=== PATIENT | male | born 1960 | race Caucasian/White ===

== ENCOUNTER 2017-08-21 10:24 | Day surgery (SDC) | payer OTHER ==
[2017-08-20 14:19] VITALS: BMI 28.8
[2017-08-21] MEDS ORDERED: LIDOCAINE VISCOUS 2% ORAL/TOP 20 ML UNIT-DOSE CUP ONE (11:41)
[2017-08-21] MEDS ORDERED: PROPOFOL 20 ML ONE ×2 (11:56)
[2017-08-21] MEDS ORDERED: MIDAZOLAM HCL 2 MG/2 ML SINGLE DOSE VIAL ONE (11:56)
[2017-08-21] MEDS ORDERED: LIDOCAINE VISCOUS 2% ORAL/TOP 20 ML UNIT-DOSE CUP MM ONE (12:04)
--- NOTE | 2017-08-21 12:28 | PROC ---
Cardioversion Risks and Benefits Explained: Yes Consent on Chart: Yes JAME done prior to Cardioversion: Yes JAME findings: no thrombus Patient anticoagulated: Yes - Procedure Anesthesiologist present: Yes Medication given: propofol Joules delivered: 120 x1 Rhythm post cardioversion: sr Remarks: Pt tolerated procedure well, no complications.
[2017-08-21 12:52] VITALS: TEMP 97.8
--- NOTE | 2017-08-21 13:05 | EKG ---
Test Reason : Blood Pressure : / mmHG Vent. Rate : 090 BPM Atrial Rate : 090 BPM P-R Int : 176 ms QRS Dur : 082 ms QT Int : 366 ms P-R-T Axes : 064 -18 027 degrees QTc Int : 447 ms NORMAL SINUS RHYTHM NORMAL ECG NO PREVIOUS ECGS AVAILABLE Confirmed by SARA QURESHI, LORIE ([id number]) on 08/21/2017 1:04:44 PM Referred By: Bong Casanova Confirmed By:LORIE RUIZ MD
[2017-08-21 13:43] VITALS: BP 120/71; PULSE 83
== END 2017-08-21 13:43 | disposition home or self-care (01) ==
LOC: JASU-ENDO 10:24
PROVIDERS: ATTEND Internal Medicine Cardiovascular Disease
PROC: 5A2204Z Restoration of Cardiac Rhythm, Single (ICD-10-PCS; 2017-08-21)
PROC: B246ZZ4 Ultrasonography of Right and Left Heart, Transesophageal (ICD-10-PCS; principal; 2017-08-21 11:00)
DX: I48.91 Unspecified atrial fibrillation (principal)
CPT/HCPCS: 92960; 93005; 93010; 93312; 93325

== ENCOUNTER 2018-04-04 10:20 | Day surgery (SDC) | payer OTHER ==
[2018-04-03 10:51] VITALS: BMI 30.4
[2018-04-04] MEDS ORDERED: LIDOCAINE VISCOUS 2% ORAL/TOP 20 ML UNIT-DOSE CUP ONE (11:38)
[2018-04-04] MEDS ORDERED: LIDOCAINE VISCOUS 2% ORAL/TOP 20 ML UNIT-DOSE CUP MM ONE (11:50)
--- NOTE | 2018-04-04 12:30 | PROC ---
Cardioversion Indication: Atrial fibrillation Risks and Benefits Explained: Yes Consent on Chart: Yes JAME done prior to Cardioversion: Yes JAME findings: No thrombus Patient anticoagulated: Yes - Procedure Anesthesiologist present: Yes Medication given: propofol Joules delivered: 120x1 Rhythm post cardioversion: SR Remarks: Patient tolerated procedure well, no complications.
[2018-04-04 12:33] VITALS: TEMP 97.5
[2018-04-04 13:05] VITALS: BP 130/78; PULSE 59
--- NOTE | 2018-04-04 17:38 | ECHO ---
Version: 1 Study ID: [id number] Institution Name Institution Address Institution Address Line #2 Telephone & email Name: MARCO MORA Study Date: 04/04/2018, 11:39 AM Patient Location: [facility] : 1960 (MM/DD/YYYY) Gender: Male Height: 68 in Age: 57 Years Ethnicity: T Weight: 200 lb Reason For Study: pre dccvBSA: 2.04 m Summary Statements Left ventricular systolic function is mildly reduced. The right ventricle is normal in size and function. No thrombus is detected in the left atrial appendage. There is mild mitral regurgitation. There is mild tricuspid regurgitation. Procedure: A 2D transesophageal echocardiogram with Doppler and color flow Doppler was performed. Informed cons ent for Transesophageal Echocardiogram, and use of a contrast agent as needed, was obtained prior to the pro cedure. The patient was brought to the endoscopy suite in a fasting state. An intravenous line was placed. A topical anesthetic agent was used for oropharangeal anesthesia. A bite block was inserted. IV concious sedat ion was administered using propafol. A multifrequency, multiplane transesopheageal echocardiographic endosco pe was inserted and manipulated in the standard fashion to achieve multiplane views. The transesophageal pr obe was passed without difficulty. The usual views were obtained; basal, mid-esophageal, transgastric and ao rtic views. The patient's vital signs, including blood pressure, heart rate, pulse oximetry and cardiac r hythm were monitored throughout the procedure and remained stable. The patient tolerated the procedure wel l without evidence of orophangeal or esophageal trauma. There were no complications. Left Ventricle Left ventricular systolic function is mildly reduced. Right Ventricle The right ventricle is normal in size and function. Atria Normal left and right atrial size and function. No thrombus is detected in the left atrial appendage . Mitral Valve There is mild mitral regurgitation. Tricuspid Valve There is mild tricuspid regurgitation. Aortic Valve No hemodynamically significant valvular aortic stenosis. No aortic regurgitation is present. Pulmonic Valve There is no pulmonic valvular regurgitation. Great Vessels Normal aortic arch, descending and ascending aorta. Pericardium/Pluera There is no pericardial effusion. MMode / 2D Measurements BMI: 30.4 kilograms/m BSA(Haycock): 2.11 m Height (metric): 172.7 cm Weight (metric): 90.7 kg Other Measurements & Calculations BSA: 2.04 m MD Bong Casanova 04/04/2018, 5:37 PM Ordering Physician: Bong Casanova Performed By: Gina Keys
--- NOTE | 2018-04-05 10:29 | EKG ---
Test Reason : Blood Pressure : / mmHG Vent. Rate : 075 BPM Atrial Rate : 075 BPM P-R Int : 170 ms QRS Dur : 084 ms QT Int : 390 ms P-R-T Axes : 061 013 -02 degrees QTc Int : 435 ms NORMAL SINUS RHYTHM NONSPECIFIC ST AND T WAVE ABNORMALITY ABNORMAL ECG WHEN COMPARED WITH ECG OF 21-AUG-2017 12:31, NONSPECIFIC T WAVE ABNORMALITY NOW EVIDENT IN ANTEROLATERAL LEADS Confirmed by DWIGHT QURESHI, KATT ([id number]) on 04/05/2018 10:28:53 AM Referred By: Bong Casanova Confirmed By:KATT QUINTANILLA MD
== END 2018-04-04 13:11 | disposition home or self-care (01) ==
LOC: JASU-ENDO 10:20
PROVIDERS: ATTEND Internal Medicine Cardiovascular Disease
PROC: 5A2204Z Restoration of Cardiac Rhythm, Single (ICD-10-PCS; 2018-04-04)
PROC: B246ZZ4 Ultrasonography of Right and Left Heart, Transesophageal (ICD-10-PCS; principal; 2018-04-04 11:30)
DX: I48.91 Unspecified atrial fibrillation (principal); I34.0 Nonrheumatic mitral (valve) insufficiency
CPT/HCPCS: 92960; 93005; 93010; 93312; 93325

== ENCOUNTER 2018-08-27 05:31 | Observation (INO) | payer OTHER ==
[2018-08-27 06:25] VITALS: BMI 30.4
[2018-08-27 06:53] LABS: HEMATOCRIT 44.1 % (35.4-49); HEMOGLOBIN 15.1 GM/dL (11.7-16.9); MCH 33.3 pg (25.7-33.7); MCHC 34.2 g/dl (32.0-35.9); MEAN CELL VOLUME 97.4 fl (80-96); MEAN PLT VOLUME 8.5 fl (7.5-11.1); PLATELET COUNT 165 K/MM3 (134-434); RBC 4.53 M/mm3 (4.00-5.60); RDW 13.7 % (11.9-15.9); WHITE BLOOD COUNT 15.5 K/mm3 (4.0-10.0)
--- NOTE | 2018-08-27 07:27 | PDOC ---
History of Present Illness - General History Source: Patient Exam Limitations: No Limitations <Demetrio Mills - Last Filed: 08/27/18 12:20> - General History Source: Patient Exam Limitations: No Limitations <Sofia Welsh - Last Filed: 08/27/18 12:41> - General Chief Complaint: Chest Pain Stated Complaint: CHEST DISCOMFORT Time Seen by Provider: 08/27/18 07:26 - History of Present Illness Initial Comments: 08/27/18 08:22 The patient is a 58 year old male with a past medical history of afib (on eliquis) here today for evaluation of chest pain. The patient reports that he woke up today at 1:30 AM with sharp, 9/10 left shoulder pain that radiated to his chest and middle of his back with associated shortness of breath. He notes that his pain is now a 5/10 and improved with oxygen. The patient reports that he had a cardiac ablation saturday at [facility]. Patient denies headache, lightheadedness. Denies fever, chills. Denies nausea, vomiting, diarrhea, abdominal pain. Denies lower extremity edema. Allergies: NKA Social history: Patient denies alcohol, drug, and tobacco use. PCP: Ramon Grimes (Demetrio Mills) Past History <Demetrio Mills - Last Filed: 08/27/18 12:20> - Past Medical History Cardiac Disorders: Yes (A-fib) COPD: No HTN: Yes - Surgical History Cardiac Surgery: Yes (Ablation ) - Suicide/Smoking/Psychosocial Hx Smoking History: Never smoked Have you smoked in the past 12 months: No If you are a former smoker, when did you quit?: 19 YEARS AGO Information on smoking cessation initiated: No Hx Alcohol Use: Yes (Occasional) Drug/Substance Use Hx: No Substance Use Type: None Hx Substance Use Treatment: No <Sofia Welsh - Last Filed: 08/27/18 12:41> - Past Medical History Allergies/Adverse Reactions: Allergies Allergy/AdvReac Type Severity Reaction Status Date / Time No Known Allergies Allergy Verified 08/27/18 05:51 Home Medications: Ambulatory Orders Metoprolol Succinate [Toprol Xl] 25 mg PO BID 08/20/17 Apixaban [Eliquis] 5 mg PO BID 08/21/17 Amiodarone HCl 100 mg PO DAILY 04/03/18 Colchicine [Colcrys -] 0.6 mg PO BID #20 tablet 08/27/18 Ibuprofen [Motrin -] 400 mg PO TID PRN #21 tablet 08/27/18 Review of Systems - Review of Systems Able to Perform ROS?: Yes <Demetrio Mills - Last Filed: 08/27/18 12:20> <Sofia Welsh - Last Filed: 08/27/18 12:41> - Review of Systems Comments:: 08/27/18 08:22 GENERAL/CONSTITUTIONAL: No fever or chills. No weakness. HEAD, EYES, EARS, NOSE AND THROAT: No change in vision. No ear pain or discharge. No sore throat. CARDIOVASCULAR: +chest pain and shortness of breath. RESPIRATORY: No cough, wheezing, or hemoptysis. GASTROINTESTINAL: No nausea, vomiting, diarrhea or constipation. GENITOURINARY: No dysuria, frequency, or change in urination. MUSCULOSKELETAL: +back pain. +left shoulder pain. No joint or muscle swelling or pain. No neck pain. SKIN: No rash NEUROLOGIC: No headache, vertigo, loss of consciousness, or change in strength/ sensation. ENDOCRINE: No increased thirst. No abnormal weight change. HEMATOLOGIC/LYMPHATIC: No anemia, easy bleeding, or history of blood clots. ALLERGIC/IMMUNOLOGIC: No hives or skin allergy. (Demetrio Mills) *Physical Exam <Demetrio Mills - Last Filed: 08/27/18 12:20> <Sofia Welsh - Last Filed: 08/27/18 12:41> - Vital Signs Last Vital Signs Temp Pulse Resp BP Pulse Ox 98.2 F 77 15 129/81 97 08/27/18 07:35 08/27/18 07:35 08/27/18 07:35 08/27/18 07:35 08/27/18 07:35 - Physical Exam Comments: 08/27/18 08:24 VITALS: 129/81 blood pressure in left arm compared to 129/75 in right arm. GENERAL: The patient is in no acute distress. HEAD: Normal with no signs of trauma. EYES: PERRLA, EOMI, sclera anicteric, conjunctiva clear. ENT: Ears normal, nares patent, oropharynx clear without exudates. Moist mucous membranes. NECK: Normal range of motion, supple without lymphadenopathy, JVD, or masses. LUNGS: Breath sounds equal, clear to auscultation bilaterally. No wheezes, and no crackles. HEART:Regular rate and rhythm, normal S1 and S2 without murmur, rub or gallop. ABDOMEN: Soft, nontender, normoactive bowel sounds. No guarding, no rebound. No masses palpable. EXTREMITIES: Normal range of motion, no edema. No clubbing or cyanosis. No erythema, or tenderness. NEUROLOGICAL: Cranial nerves II through XII grossly intact. Normal speech. No focal neurological deficits. MUSCULOSKELETAL: Back non-tender to palpation, no CVA tenderness SKIN: Warm, Dry, normal turgor, no rashes or lesions noted. (Demetrio Mills) - Procedure Monitoring Vital Signs: Procedure Monitoring Vital Signs Temperature 98.2 F 08/27/18 07:35 Pulse Rate 77 08/27/18 07:35 Respiratory Rate 15 08/27/18 07:35 Blood Pressure 129/81 08/27/18 07:35 O2 Sat by Pulse Oximetry (%) 97 08/27/18 07:35 ED Treatment Course - LABORATORY CBC & Chemistry Diagram: 08/27/18 06:40 08/27/18 08:41 <Demetrio Mills - Last Filed: 08/27/18 12:20> - LABORATORY CBC & Chemistry Diagram: 08/27/18 06:40 08/27/18 08:41 <Sofia Welsh - Last Filed: 08/27/18 12:41> - ADDITIONAL ORDERS Additional order review: Laboratory Results 08/27/18 08/27/18 08/27/18 08:41 07:33 06:40 Sodium 142 Cancelled Cancelled Potassium 4.1 Cancelled Cancelled Chloride 104 Cancelled Cancelled Carbon Dioxide 29 Cancelled Cancelled Anion Gap 10 Cancelled Cancelled BUN 24 H Cancelled Cancelled Creatinine 1.3 Cancelled Cancelled Creat Clearance w eGFR 56.90 Cancelled Cancelled Random Glucose 102 Cancelled Cancelled Calcium 8.5 Cancelled Cancelled Phosphorus 3.6 Cancelled Magnesium 2.4 Cancelled Cancelled Total Bilirubin 0.5 Cancelled Cancelled AST 28 Cancelled Cancelled ALT 30 Cancelled Cancelled Alkaline Phosphatase 53 Cancelled Cancelled Creatine Kinase 114 Cancelled Troponin I 1.19 H* Cancelled Cancelled Total Protein 7.2 Cancelled Cancelled Albumin 4.0 Cancelled Cancelled TSH 2.61 Cancelled Cancelled 08/27/18 06:40 RBC 4.53 MCV 97.4 H MCHC 34.2 RDW 13.7 MPV 8.5 - RADIOLOGY Radiology Studies Ordered: Category Date Time Status CHEST CTA [CT] Stat CT Scan 08/27/18 09:50 Completed - Medications Given in the ED: ED Medications Discontinued Medications Generic Name Dose Route Start Last Admin Trade Name Freq PRN Reason Stop Dose Admin Ibuprofen 400 mg 08/27/18 08:20 08/27/18 10:08 Motrin - PO 08/27/18 08:21 400 mg ONCE ONE Administration Medical Decision Making <Demetrio Mills - Last Filed: 08/27/18 12:20> <Sofia Welsh - Last Filed: 08/27/18 12:41> - Medical Decision Making Call placed to Dr. Casanova at 8:30 AM awaiting call back. Call placed to Dr. Casanoav at 9:00 AM awaiting call back. Call placed to Dr. Bailey t 12:18 awaiting call back. (Demetrio Mills) 08/27/18 07:28 EKG - NSR rate of 74 bpm, axis nlm, intervals nl, no st elevation or depression , t wave inversions v4-v5 08/27/18 07:52 Pt reports persistent pain He contacted [facility] physician who said he can take motrin Will do CTA will give motrin Will contact Edilberto 08/27/18 08:25 Called by Lab All labs are hemolyzed again 08/27/18 09:[address] Perez She agrees with CTA, recommends obs 08/27/18 09:18 Laboratory Tests 08/27/18 06:40 WBC 15.5 H Hgb 15.1 Hct 44.1 Plt Count 165 08/27/18 09:50 Laboratory Tests 08/27/18 08:41 Sodium 142 Potassium 4.1 Chloride 104 Carbon Dioxide 29 Anion Gap 10 BUN 24 H Creatinine 1.3 Random Glucose 102 Creatine Kinase 114 TSH 2.61 CTA ordered 08/27/18 12:28 CT negative for PE, dissection, pericardial effusion Call placed to Dr. Stafford Case reviewed with his SITE SAFETY MANAGER Peyton Requests ECHO 08/27/18 12:30 Motrin 400 TID Colchicine 0.6 bid x 1 week can wean off (Sofia Welsh) *DC/Admit/Observation/Transfer <Demetrio Mills - Last Filed: 08/27/18 12:20> - Discharge Dispostion Decision to Admit order: No <Sofia Welsh - Last Filed: 08/27/18 12:41> Diagnosis at time of Disposition: Chest pain Qualifiers: Chest pain type: unspecified Qualified Code(s): R07.9 - Chest pain, unspecified - Discharge Dispostion Disposition: HOME Condition at time of disposition: Stable - Referrals Referrals: Ramon Grimes MD [Primary Care Provider] - - Patient Instructions - Post Discharge Activity - Attestations Scribe Attestion: 08/27/18 08:23 Documentation prepared by ÓSCAR Shi, acting as medical payment poster for Sofia Welsh MD. (Demetrio Mills)
[2018-08-27] MEDS ORDERED: IBUPROFEN 400 MG TABLET (FP) PO ONE ×2 (08:20→10:07)
[2018-08-27 09:48] LABS: ALK PHOS 53 U/L (45-117); ANION GAP 10 MMOL/L (8-16); BILIRUBIN,TOTAL 0.5 mg/dL (0.2-1); BLOOD UREA NITROGEN 24 mg/dL (7-18); CALCIUM 8.5 mg/dL (8.5-10.1); CHLORIDE 104 mmol/L (98-107); CO2 29 mmol/L (21-32); CREATININE 1.3 mg/dL (0.55-1.3); GLUCOSE,RANDOM 102 mg/dL (74-106); MAGNESIUM 2.4 mg/dL (1.8-2.4); POTASSIUM 4.1 mmol/L (3.5-5.1); SGOT/AST 28 U/L (15-37); SGPT/ALT 30 U/L (13-61); SODIUM 142 mmol/L (136-145); TOT PROT 7.2 g/dl (6.4-8.2)
[2018-08-27] MEDS ORDERED: FUROSEMIDE 20 MG TABLET (FP) PO ONE (11:49)
--- NOTE | 2018-08-27 11:56 | EKG ---
Test Reason : Blood Pressure : / mmHG Vent. Rate : 074 BPM Atrial Rate : 074 BPM P-R Int : 168 ms QRS Dur : 086 ms QT Int : 398 ms P-R-T Axes : 058 -06 062 degrees QTc Int : 441 ms NORMAL SINUS RHYTHM T WAVE ABNORMALITY, CONSIDER LATERAL ISCHEMIA ABNORMAL ECG WHEN COMPARED WITH ECG OF 04-APR-2018 12:19, NO SIGNIFICANT CHANGE WAS FOUND Confirmed by SARA QURESHI, LORIE ([id number]) on 08/27/2018 11:56:18 AM Referred By: Confirmed By:LORIE RUIZ MD
[2018-08-27 12:13] LABS: PHOSPHOROUS 3.6 mg/dL (2.5-4.9)
[2018-08-27 12:50] VITALS: BP 122/81; PULSE 79; TEMP 98.1
== END 2018-08-27 12:53 | disposition home or self-care (01) ==
LOC: JER 05:31 → JERBED 11:33
PROVIDERS: ADMIT Internal Medicine; ATTEND Internal Medicine
DX: R07.9 Chest pain, unspecified (principal); I48.91 Unspecified atrial fibrillation; I10 Essential (primary) hypertension; Z79.01 Long term (current) use of anticoagulants
CPT/HCPCS: 36415; 71045-TC-FY; 71275-TC; 80053; 82550; 83735; 84100; 84443; 84484; 85027; 93005; 93010; 99285-25; G0378